=== PATIENT | female | born 1955 | race American Indian/Alaskan Native ===

== ENCOUNTER 2019-10-04 15:24 | Outpatient (CLI) | payer BC ==
--- NOTE | 2019-10-04 16:07 | Mammography Report ---
DIGITAL SCREENING MAMMOGRAM WITH CAD, 10/04/2019 INDICATION: Routine screening mammography. History of right breast benign biopsy. TECHNIQUE: Digital bilateral 2D mammography was obtained in the craniocaudal and mediolateral obliq ue projections. This examination was interpreted with the benefit of Computer-Aided Detection analysi s. COMPARISON: 07/26/2018 and 05/12/2016 FINDINGS: Breast Density: There are scattered areas of fibroglandular density. Scarring in the right breast aga in noted. There is no evidence of dominant mass, suspicious calcifications or architectural distortio n in either breast. IMPRESSION: Follow up recommendation: Routine yearly BI-RADS Category 2: Benign. A "normal" or negative report should not discourage follow up or biopsy of a clinically significant f inding. A written summary of these findings will be mailed to the patient. The patient will be entered into a mammography reporting system which will generate a reminder letter for the patient's next appointmen t at the appropriate interval. The [employer] recommends yearly mammograms starting at age 40 and continuing as l marybel as a woman is in good health. Breast MRI is recommended for women with an approximate 20-25% or greater lifetime risk of breast cancer, including women with a strong family history of breast or ova alex cancer or who have been treated for Hodgkin's disease. Signer Name: Lucy Martinez MD Signed: 10/04/2019 4:03 PM Workstation Name: [id number]
== END 2019-10-04 15:25 | disposition home or self-care (01) ==
LOC: MAMMO 15:24
PROVIDERS: ATTEND Internal Medicine
DX: Z12.31 Encounter for screening mammogram for malignant neoplasm of breast (principal)
CPT/HCPCS: 77067

== ENCOUNTER 2020-10-05 14:49 | Outpatient (CLI) | payer BC ==
--- NOTE | 2020-10-06 11:59 | Mammography Report ---
DIGITAL SCREENING MAMMOGRAM WITH CAD, 10/06/2020 CLINICAL INFORMATION / INDICATION: Routine screening mammography. TECHNIQUE: Digital bilateral 2D mammography was obtained in the craniocaudal and mediolateral obliqu e projections. This examination was interpreted with the benefit of Computer-Aided Detection analysis . COMPARISON: 07/26/2018 FINDINGS: Breast Density: There are scattered areas of fibroglandular density. No dominant mass, suspicious calcifications, or architectural distortion in either breast. No interval change. IMPRESSION: No mammographic evidence of malignancy. Follow up recommendation: Routine yearly BI-RADS Category 1: Negative. A "normal" or negative report should not discourage follow up or biopsy of a clinically significant f inding. A written summary of these findings will be mailed to the patient. The patient will be entered into a mammography reporting system which will generate a reminder letter for the patient's next appointmen t at the appropriate interval. The [employer] recommends yearly mammograms starting at age 40 and continuing as l marybel as a woman is in good health. Breast MRI is recommended for women with an approximate 20-25% or greater lifetime risk of breast cancer, including women with a strong family history of breast or ova alex cancer or who have been treated for Hodgkin's disease. Signer Name: Marietta Mancilla MD Signed: 10/06/2020 11:54 AM Workstation Name: [id number]
== END 2020-10-05 14:50 | disposition home or self-care (01) ==
LOC: MAMMO 14:49
PROVIDERS: ATTEND Internal Medicine
DX: Z12.31 Encounter for screening mammogram for malignant neoplasm of breast (principal); N64.89 Other specified disorders of breast
CPT/HCPCS: 77067

== ENCOUNTER 2021-10-28 08:50 | Outpatient (CLI) | payer BC ==
--- NOTE | 2021-10-28 15:12 | Mammography Report ---
DIGITAL SCREENING MAMMOGRAM WITH CAD, 10/28/2021 CLINICAL INFORMATION / INDICATION: Routine screening TECHNIQUE: Digital bilateral 2D mammography was obtained in the craniocaudal and mediolateral obliqu e projections. This examination was interpreted with the benefit of Computer-Aided Detection analysis . COMPARISON: 10/05/2020 FINDINGS: Breast Density: There are scattered areas of fibroglandular density. No dominant mass, suspicious calcifications, or architectural distortion in either breast. IMPRESSION: No mammographic evidence of malignancy. Follow up recommendation: Clinical follow-up of patient's complaint of right axillary palpable abnorm ality is suggested. If this is thought significant, ultrasound would be recommended. BI-RADS Category 1: NEGATIVE A "normal" or negative report should not discourage follow up or biopsy of a clinically significant f inding. A written summary of these findings will be mailed to the patient. The patient will be entered into a mammography reporting system which will generate a reminder letter for the patient's next appointmen t at the appropriate interval. The [employer] recommends yearly mammograms starting at age 40 and continuing as l marybel as a woman is in good health. Breast MRI is recommended for women with an approximate 20-25% or greater lifetime risk of breast cancer, including women with a strong family history of breast or ova alex cancer or who have been treated for Hodgkin's disease. Signer Name: Levar Awad MD Signed: 10/28/2021 3:06 PM Workstation Name: [id number]
== END 2021-10-28 08:51 | disposition home or self-care (01) ==
LOC: MAMMO 08:50
PROVIDERS: ATTEND Internal Medicine
DX: Z12.31 Encounter for screening mammogram for malignant neoplasm of breast (principal)
CPT/HCPCS: 77067